=== PATIENT | female | born 1975 | race Caucasian/White ===

== ENCOUNTER 2020-05-30 22:00 | Observation (INO) | payer OTHER, SELFPAY ==
[~2020-05-30] VITALS: Ht 172.7 cm; Wt 107.5 kg
--- NOTE | 2020-05-30 22:00 | NUR ---
PT BIBA BLS RUN FOR C/O INTERMITTENT CHEST PAIN 3 DAYS
--- NOTE | 2020-05-30 22:04 | NUR ---
44 Y/O FEMALE C/O INTERMITTENT CHEST PAIN X 3 DAYS; PT TOOK 2 NITRO 1 HOUR AGO WITH NO RELIEF; PT STATES NEGATIVE FOR COVID OF THIS WEEK; DENIES N/V/D; SKIN IS PINK/WARM/DRY; AAOX4 WITH EVEN AND STEADY GAIT; HR EVEN AND REGULAR; PT DENIES ANY FEVER, SOB, OR COUGH AT THIS TIME; PATIENT STATES PAIN OF 4/10 AT THIS TIME; VSS; PATIENT POSITIONED FOR COMFORT; HOB ELEVATED; BEDRAILS UP X2; BED DOWN AND LOCKED. ER MD MADE AWARE OF PT STATUS. PMH:MITRAL VALVE PROLAPSE/GERD/HLD/ANXIETY/DEPRESSION/HEAR MURMUR ALLERGY: ASA
[2020-05-30 22:09] VITALS: BP 131/75
--- NOTE | 2020-05-30 22:20 | NUR ---
EMT AT BEDSIDE
--- NOTE | 2020-05-30 22:41 | NUR ---
PT AMBULATING TO RESTROOM
--- NOTE | 2020-05-30 22:45 | NUR ---
LAB AT BEDSIDE
--- NOTE | 2020-05-30 22:45 | NUR ---
PT RESTING IN BED IN POSITION OF COMFORT, BED LOW AND LOCKED, SIDERAILS UP, VSS, WILL CONTINUE TO MONITOR
--- NOTE | 2020-05-30 22:45 | NUR ---
XRAY AT BEDSIDE
[2020-05-30] MEDS ORDERED: NITROGLYCERIN 0.4 MG TAB SL ONE (23:10)
[2020-05-30] MEDS ORDERED: CLOPIDOGREL 75 MG TAB PO ONE (23:10)
[2020-05-30 23:17] LABS: BASOPHILS % (AUTO) 0.4 % (0.0-2.0); EOSINOPHILS # (AUTO) 0.1 K/uL (0-0.4); EOSINOPHILS % (AUTO) 1.1 % (0.0-4.0); HEMOGLOBIN 12.4 g/dL (12.0-16.0); LYMPHOCYTES # (AUTO) 3.2 K/uL (2.5-16.5); LYMPHOCYTES % (AUTO) 31.8 % (20.5-51.1); MEAN CORPUSCULAR HEMOGLOBIN 30 pg (27-31); MEAN CORPUSCULAR HGB CONC 33 g/dL (33-37); MEAN CORPUSCULAR VOLUME 89.9 fL (80-94); MONOCYTES # (AUTO) 0.5 K/uL (0.8-1.0); MONOCYTES % (AUTO) 5.1 % (1.7-9.3); NEUTROPHILS # (AUTO) 6.2 K/uL (1.8-7.7); NEUTROPHILS % (AUTO) 61.6 % (42.2-75.2); PLATELET COUNT (AUTO) 257 K/uL (140-450); RED BLOOD CELL COUNT(AUTO) 4.22 MIL/uL (4.20-5.40); RED CELL DISTRIBUTION WIDTH 14.7 % (11.6-13.7)
[2020-05-30 23:36] LABS: ALBUMIN 3.7 g/dL (3.4-5.0); ANION GAP 11.8 (8-16); CREATININE 1.2 mg/dL (0.6-1.3); POTASSIUM 3.8 mmol/L (3.5-5.1); TOTAL BILIRUBIN 0.4 mg/dL (0.0-1.0)
[2020-05-30 23:44] LABS: CREATINE KINASE MB 0.6 ng/mL (0-3.6)
--- NOTE | 2020-05-30 23:57 | NUR ---
PT RESTING IN BED IN POSITION OF COMFORT, BED LOW AND LOCKED, VSS, SIDERAILS UP, WILL CONTINUE TO MONITOR
[2020-05-31] MEDS ORDERED: ATOR20TA PO (00:02)
[2020-05-31] MEDS ORDERED: OMEP20TC12 PO (00:02)
[2020-05-31] MEDS ORDERED: CITA10TA5 PO (00:03)
[2020-05-31] MEDS ORDERED: FAMO10TA93 PO (00:04)
--- NOTE | 2020-05-31 00:24 | NUR ---
COVID ANTIGEN AMIRAH SWAB COLLECTED AND WALKED TO LAB.
[2020-05-31] MEDS ORDERED: HYDROcodone/APAP 5/325 MG 1 TAB TAB PO PRN (00:45)
[2020-05-31] MEDS ORDERED: ONDANSETRON 4 MG/2 ML VIAL IVP PRN (00:45)
[2020-05-31] MEDS ORDERED: ACETAMINOPHEN 325 MG TAB PO PRN (00:45)
[2020-05-31] MEDS ORDERED: MORPHINE SULFATE 2 MG/ML SYR IVP PRN (00:45)
--- NOTE | 2020-05-31 01:09 | NUR ---
PT RESTING IN BED IN POSITION OF COMFORT, BED LOW AND LOCKED, VSS, SIDERAILS UP, WILL CONTINUE TO MONITOR
--- NOTE | 2020-05-31 01:23 | NUR ---
PT AMBULATED TO RESTROOM WITH STEADY GAIT
--- NOTE | 2020-05-31 01:43 | NUR ---
Patient will be admitted to care of . Admited to [facility]. Will go to room 112A. Belongings list completed. Report to ANNA MARIE FELICIANO.
[2020-05-31 02:00] VITALS: BP 128/74
--- NOTE | 2020-05-31 02:00 | NUR ---
ADMITTED A PATIENT FROM ER. PT A/A/OX4, SITTING UPRIGHT IN BED. NO SIGN AND SYMPTOMS OF DISTRESS NOTED AT THIS TIME. PER PT SHE HAS OFF AND ON 11/07 DULL ACHE ON HER CHEST AND STATED TOLERABLE AT THIS TIME. VSS, AFEBRILE, SATING 100% ON RA. SR ON NET SOFTWARE ENGINEER, HR-71. ADMISSION HISTORY OBTAINED FROM THE PT. NO OTHER COMPLAIN AT THIS TIME. ORIENTED THE PT TO THE ROOM SETTING AND USE OF CALL LIGHT SYSTEM. CALL LIGHT WITHIN REACH. WILL CONTINUE POC AND MONITORING.
--- NOTE | 2020-05-31 04:08 | NUR ---
PATIENT SLEEPING AT THIS TIME. VISIBLE CHEST RISE AND FALL NOTED. NO COMPLAIN AT THIS TIME. SAFETY MEASURES IN PLACED.
[2020-05-31 06:00] VITALS: BP 125/69
--- NOTE | 2020-05-31 06:09 | NUR ---
NO ACUTE EVENT THROUGHOUT THE NIGHT. NO SIGN AND SYMPTOMS OF DISTRESS NOTED. NO COMPLAIN AT THIS TIME. ALL NEEDS ATTENDED. CALL LIGHT WITHIN REACH. WILL ENDORSE THE PT TO THE ONCOMING RN FOR CONTINUITY OF CARE.
--- NOTE | 2020-05-31 07:25 | NUR ---
PATIENT STABLE. ENDORSED PT TO DAY RN FOR CONTINUITY OF CARE. SIGNING OFF.
[2020-05-31 08:00] LABS: CREATINE KINASE MB 0.5 ng/mL (0-3.6)
[2020-05-31 08:46] VITALS: BP 119/66
[2020-05-31] MEDS ORDERED: ENOXAPARIN 40 MG/0.4 ML SYR SUBQ SCH (09:00)
[2020-05-31] MEDS ORDERED: METOPROLOL 25 MG TAB PO SCH (09:00)
--- NOTE | 2020-05-31 09:12 | NUR ---
PATIENT HAS BEEN SCREENED AND CATEGORIZED MODERATE NUTRITION RISK. PATIENT WILL BE SEEN WITHIN 3-5 DAYS OF ADMISSION. 06/02/20 06/04/[address]
--- NOTE | 2020-05-31 10:45 | NUR ---
DC [age] YRS OLD FEMALE PATIENT WAS ADMITTED FROM HOME WITH A DX OF CHEST PAIN. PT HAS A HX OF MITRAL VALVE PROLAPSE AND GERD. TROP NEGATIVE X 3, CXR SHOWED NO ACUTE CARDIOPULMONARY DISEASE. STARTED ACS PROTOCOL, CONTINUE HOME MEDS. ORDERED ECHO, CONSULTED WITH FLOOR LAYER HELPER. DC PLAN TO GO HOME WHEN STABLE , AWAITING FOR FLOOR LAYER HELPER. CM TO FOLLOW.
[2020-05-31 16:17] VITALS: BP 104/58
[2020-05-31] MEDS ORDERED: ATORVASTATIN 20 MG TAB PO SCH (18:00)
--- NOTE | 2020-05-31 18:45 | NUR ---
DISCAHRGE INSTRUCTIONS PROVIDED, PATIENT VERBALIZED UNDERSTANDING. IV ACCESS REMOVED. PATIENT ACCOMPANIED BY STAFF TO LOBBY WITH BELONGING ACCOUNTED FOR.
[2020-05-31] MEDS ORDERED: CITALOPRAM 20 MG TAB PO SCH (21:00)
[2020-05-31] MEDS ORDERED: SIMVASTATIN 20 MG TAB PO SCH (21:00)
[2020-05-31] MEDS ORDERED: FAMOTIDINE 20 MG TAB PO SCH (21:00)
[2020-06-01] MEDS ORDERED: PANTOPRAZOLE 40 MG TABEC PO SCH ×2 (06:30)
[2020-06-01] MEDS ORDERED: ASPIRIN 81 MG TAB.CHEW PO SCH (09:00)
[2020-06-01] MEDS ORDERED: CLOPIDOGREL 75 MG TAB PO SCH (09:00)
== END 2020-05-31 18:45 | disposition home or self-care (01) ==
LOC: MED 22:00 → MTU 05-31 00:45 → UNDOADMIN 05-31 00:45 → MTU 05-31 00:45
PROVIDERS: ADMIT Internal Medicine; ATTEND Internal Medicine
DX: R07.89 Other chest pain (principal); Z20.828 Contact with and (suspected) exposure to other viral communicable diseases; R06.02 Shortness of breath; I34.1 Nonrheumatic mitral (valve) prolapse; K21.9 Gastro-esophageal reflux disease without esophagitis; R42 Dizziness and giddiness; Z79.899 Other long term (current) drug therapy; Z88.6 Allergy status to analgesic agent
CPT/HCPCS: 36415; 71045; 80053; 82550; 82553; 83690; 84484; 85025; 87081; 87426; 93005; 93307; 96372; 99285; G0378; J1650; Q0092

== ENCOUNTER 2020-07-26 12:52 | Emergency (ER) | payer OTHER, SELFPAY ==
[~2020-07-26] VITALS: Ht 172.7 cm; Wt 104.3 kg
[~2020-07-26 12:52] MED LIST: ATOR20TA PO; CITA10TA5 PO; FAMO10TA93 PO; OMEP20TC12 PO
[2020-07-26 13:10] VITALS: BP 120/84
[2020-07-26 16:13] VITALS: BP 115/81
== END 2020-07-26 16:13 | disposition home or self-care (01) ==
LOC: MED 12:52
DX: U07.1 COVID-19 (principal); I51.89 Other ill-defined heart diseases; K21.9 Gastro-esophageal reflux disease without esophagitis; Z88.6 Allergy status to analgesic agent; Z79.899 Other long term (current) drug therapy
CPT/HCPCS: 71045; 99284; U0003

== ENCOUNTER 2020-09-06 19:26 | Emergency (ER) | payer OTHER, SELFPAY ==
[~2020-09-06] VITALS: Ht 172.7 cm; Wt 68.0 kg
[2020-09-06 19:37] VITALS: BP 127/79
--- NOTE | 2020-09-06 19:50 | NUR ---
SEEN AND EXAMINED BY PA WITH ORDERS AND CARRIED OUT.
--- NOTE | 2020-09-06 20:15 | NUR ---
SWAB DONE AND SENT TO LAB
[2020-09-06 20:27] VITALS: BP 127/79
--- NOTE | 2020-09-06 20:27 | NUR ---
Patient discharged with v/s stable. Written and verbal after care instructions given and explained. Patient alert, oriented and verbalized understanding of instructions. Ambulatory with steady gait. All questions addressed prior to discharge. ID band removed. Patient advised to follow up with PMD. Rx of AZITHROMYCIN 250 MG, PROMETHAZINE DM, [id number] given. Patient educated on indication of medication including possible reaction and side effects. Opportunity to ask questions provided and answered.
== END 2020-09-06 20:27 | disposition home or self-care (01) ==
LOC: MED 19:26
DX: R05 Cough (principal); I51.89 Other ill-defined heart diseases; K21.9 Gastro-esophageal reflux disease without esophagitis; Z88.6 Allergy status to analgesic agent; Z79.899 Other long term (current) drug therapy; Z20.828 Contact with and (suspected) exposure to other viral communicable diseases
CPT/HCPCS: 99283; U0003

== ENCOUNTER 2020-12-27 15:14 | Emergency (ER) | payer OTHER, SELFPAY ==
[~2020-12-27] VITALS: Ht 172.7 cm; Wt 127.0 kg
[2020-12-27 15:16] VITALS: BP 141/91
--- NOTE | 2020-12-27 15:21 | NUR ---
PT AMB TO BED 11
[2020-12-27] MEDS ORDERED: RABIES VACCINE 2.5 IU VIAL IMVAC ONE ×3 (15:30→16:55)
[2020-12-27] MEDS ORDERED: BACITRACIN OINT 500 UNITS/GM PKT TP ONE (15:30)
[2020-12-27] MEDS ORDERED: AMOXIL/CLAVULANATE 875/125 MG 1 TAB PO ONE (15:30)
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
--- NOTE | 2020-12-27 15:37 | NUR ---
PT WOUND CLEANED AND IRRIGATED WITH NORMAL SALINE RN NOTIFIED
[2020-12-27] MEDS ORDERED: AMOX-1000 PO (16:20)
--- NOTE | 2020-12-27 16:22 | NUR ---
APPLIED BACITRACIN TO PT'S WOUNDS
[2020-12-27 17:12] VITALS: BP 135/85
== END 2020-12-27 17:12 | disposition home or self-care (01) ==
LOC: MED 15:14
DX: S71.152A Open bite, left thigh, initial encounter (principal); S71.151A Open bite, right thigh, initial encounter; K21.9 Gastro-esophageal reflux disease without esophagitis; Z20.3 Contact with and (suspected) exposure to rabies; Z79.899 Other long term (current) drug therapy; Z79.82 Long term (current) use of aspirin; W54.0XXA Bitten by dog, initial encounter; Y93.89 Activity, other specified; Y92.89 Other specified places as the place of occurrence of the external cause; Y99.8 Other external cause status
CPT/HCPCS: 90471; 90675; 99283